=== PATIENT | female | born 1950 | race Caucasian/White ===

== ENCOUNTER → 2016-02-21 | Outpatient (REF) | payer MEDICARE, OTHER ==
[2016-02-21 19:01] LABS: AMYLASE 77 U/L (25-115)
== END ==
LOC: M LAB REF 16:41
PROVIDERS: ATTEND Nurse Practitioner Family
DX: R10.84 Generalized abdominal pain (principal)

== ENCOUNTER → 2016-02-27 | Outpatient (REF) | payer MEDICARE, OTHER | LOC: M LAB REF 14:55 | PROVIDERS: ATTEND Physician Assistant | DX: R30.0 Dysuria (principal) ==

== ENCOUNTER → 2016-09-26 | Outpatient (REF) | payer MEDICARE, OTHER | LOC: M LAB REF 16:10 | PROVIDERS: ATTEND Physician Assistant | DX: R30.0 Dysuria (principal) ==

== ENCOUNTER → 2017-03-13 | Outpatient (REF) | payer MEDICARE, OTHER | LOC: M LAB REF 12:21 | DX: N30.01 Acute cystitis with hematuria (principal) | CPT/HCPCS: 87186 ==

== ENCOUNTER → 2017-06-01 | Outpatient (REF) | payer MEDICARE, OTHER | LOC: M LAB REF 11:58 | DX: R30.0 Dysuria (principal) | CPT/HCPCS: 87086 ==

== ENCOUNTER 2017-09-14 12:27 | Emergency (ER) | payer MEDICARE, OTHER ==
[2017-09-14] MEDS: MECLIZINE 25 MG TABLET PO (15:00)
[2017-09-14] MEDS: NS 1,000 ML IV (15:00)
[2017-09-14 15:20] LABS: BASO % 0.5 % (0.0-1.0); EOS # 0.1 10^3/uL (0.0-0.50); EOS % 1.9 % (0.0-3.0); HEMATOCRIT 47.2 % (36.0-47.0); HEMOGLOBIN 15.8 g/dl (12.0-15.5); IMMATURE GRANULOCYTE % 0.4 % (0-3.0); LYMPH # 0.8 10^3/uL (1.5-4.5); LYMPH % 10.4 % (24.0-44.0); MEAN CORPUSCULAR HEMOGLOBIN 29.8 pg (27.0-33.0); MEAN CORPUSCULAR HGB CONC 33.5 g/dl (32.0-36.5); MEAN CORPUSCULAR VOLUME 89.1 fl (80.0-96.0); MONO # 0.5 10^3/uL (0.0-0.8); MONO % 6.3 % (0.0-5.0); NEUTROPHILS % 80.5 % (36.0-66.0); PLATELET COUNT, AUTOMATED 172 10^3/uL (150-450); RED CELL DISTRIBUTION WIDTH 12.1 % (11.5-14.5); WHITE BLOOD COUNT 7.4 10^3/uL (4.0-10.0)
[2017-09-14 15:37] LABS: AMMONIA < 10 uMOL/L (<32)
[2017-09-14 15:41] LABS: ALBUMIN 3.7 GM/DL (3.2-5.2); ALBUMIN/GLOBULIN RATIO 0.86 (1.00-1.93); ALKALINE PHOSPHATASE 72 U/L (45-117); ALT/SGPT 28 U/L (12-78); ANION GAP 7 MEQ/L (8-16); AST/SGOT 19 U/L (7-37); BILIRUBIN,DIRECT 0.1 MG/DL (0.0-0.2); BILIRUBIN,TOTAL 0.5 MG/DL (0.2-1.0); BLOOD UREA NITROGEN 19 MG/DL (7-18); CALCIUM LEVEL 9.4 MG/DL (8.8-10.2); CARBON DIOXIDE LEVEL 27 MEQ/L (21-32); CHLORIDE LEVEL 107 MEQ/L (98-107); CPK CREATINE PHOSPHOKINASE 155 U/L (26-192); CREATININE FOR GFR 0.74 MG/DL (0.55-1.30); ETHYL ALCOHOL (ETHANOL) < 0.003 % (0.000-0.010); GLOMERULAR FILTRATION RATE > 60.0 (>45); GLUCOSE, FASTING 106 MG/DL (70-100); POTASSIUM SERUM 4.4 MEQ/L (3.5-5.1); SALICYLATE LEVEL < 1.7 MG/DL (5.0-30.0); SODIUM LEVEL 141 MEQ/L (136-145); TROPONIN I < 0.02 NG/ML (< 0.10)
[2017-09-14 15:47] LABS: CK-MB VALUE MASS 1.8 NG/ML (<3.6); MB/CK RELATIVE INDEX 1.16 (< OR =4); THYROID STIMULATING HORMONE 0.251 uIU/ML (0.358-3.740)
[2017-09-14 15:50] LABS: BEDSIDE GLUCOSE 103 MG/DL (80-115)
[2017-09-14 16:01] LABS: ACETAMINOPHEN LEVEL < 2.0 UG/ML (10.0-30.0)
== END 2017-09-14 17:25 | disposition home or self-care (01) ==
LOC: M ED 12:27
DX: R42 Dizziness and giddiness (principal); R94.31 Abnormal electrocardiogram [ECG] [EKG]; E07.9 Disorder of thyroid, unspecified
CPT/HCPCS: 70450

== ENCOUNTER → 2017-10-18 | Outpatient (REF) | payer MEDICARE, OTHER ==
[2017-10-18 21:04] LABS: APPEARANCE, URINE HAZY (CLEAR); BACTERIA, URINE AUTO 1+ (NEGATIVE); BILIRUBIN, URINE AUTO NEGATIVE (NEGATIVE); BLOOD, URINE BLOOD 3+ (NEGATIVE); COLOR, URINE YELLOW (YELLOW); GLUCOSE, URINE (UA) AUTO NEGATIVE (NEGATIVE); KETONE, URINE AUTO NEGATIVE (NEGATIVE); LEUKOCYTE ESTERASE, URINE AUTO 2+ (NEGATIVE); NITRITE, URINE AUTO NEGATIVE (NEGATIVE); PROTEIN, URINE AUTO NEGATIVE (NEGATIVE); RBC, URINE AUTO TNTC /HPF (0-3); SPECIFIC GRAVITY URINE AUTO 1.011 (1.002-1.035); SQUAMOUS EPITHELIAL CELL UR AU 0 /HPF (0-6); UROBILINOGEN, URINE AUTO 0.2 mg/dL (0.0-2.0); WBC, URINE AUTO 99 /HPF (0-3)
== END ==
LOC: M LAB REF 16:39
DX: N39.0 Urinary tract infection, site not specified (principal)
CPT/HCPCS: 81001

== ENCOUNTER 2017-10-23 08:21 | Day surgery (SDC) | payer MEDICARE, OTHER ==
[~2017-10-23 08:21] MED LIST: PROPOFOL 200 MG/20 ML VIAL As Ordered
[2017-10-23] MEDS ORDERED: NS 1,000 ML IV (09:00)
== END 2017-10-23 10:33 | disposition home or self-care (01) ==
LOC: M OPP 08:21
DX: Z12.11 Encounter for screening for malignant neoplasm of colon (principal); D12.4 Benign neoplasm of descending colon; D12.3 Benign neoplasm of transverse colon; K57.30 Diverticulosis of large intestine without perforation or abscess without bleeding; K64.8 Other hemorrhoids; E03.9 Hypothyroidism, unspecified; E04.1 Nontoxic single thyroid nodule; Z92.3 Personal history of irradiation; M19.90 Unspecified osteoarthritis, unspecified site; Z78.0 Asymptomatic menopausal state; G47.30 Sleep apnea, unspecified; Z96.659 Presence of unspecified artificial knee joint; M54.89 Other dorsalgia; Z86.39 Personal history of other endocrine, nutritional and metabolic disease; Z91.048 Other nonmedicinal substance allergy status; Z79.899 Other long term (current) drug therapy
CPT/HCPCS: 45385

== ENCOUNTER → 2018-01-21 | Outpatient (REF) | payer MEDICARE, OTHER | LOC: M LAB REF 16:56 | DX: M54.5 Low back pain (principal) | CPT/HCPCS: 87086 ==

== ENCOUNTER 2018-02-06 08:47 | Observation (INO) | payer MEDICARE, OTHER ==
[~2018-02-06] VITALS: Ht 165.1 cm; Wt 108.8 kg
[~2018-02-06 08:47] MED LIST changes: +ALPR0.25; +ALPR0.25 PO; +BACT400T PO; +CALC500T49 PO; +CALC600T57 PO; +FLON1SPR; +LEVO150T7 PO; +LEVO2TA; +MAGN1CAP PO; +MECL-68 PO; +OMEG10002 PO; +PRED20TA; -PROPOFOL 200 MG/20 ML VIAL As Ordered; +VIST25CA PO; +VITA500T PO; +ZYRT10CA PO; +ZYRT10CA5 PO
[2018-02-06] MEDS ORDERED: MELO15TA28 PO (08:55)
[2018-02-06] MEDS ORDERED: SYNT175T2 PO (08:55)
[2018-02-06] MEDS ORDERED: KETOROLAC 30 MG/ML VIAL (J1885) IV ONE (09:15)
[2018-02-06] MEDS ORDERED: NS 1,000 ML IV ONE (09:15)
[2018-02-06] MEDS ORDERED: ONDANSETRON 4MG/2ML VIAL (J2405) IV ONE ×2 (09:15→12:30)
--- NOTE | 2018-02-06 09:30 | REP ---
Clinical: Acute left flank pain. Technique: Axial noncontrast images from the lung bases to the pubic symphysis with coronal and sagittal re-formations. Comparison: 06/24/2014. Findings: Lung bases are clear. Visualized heart and pericardium normal. Liver, spleen, pancreas, bilateral adrenal glands and kidneys are essentially normal for noncontrast evaluation. Specifically, no acute perinephric stranding, hydroureteronephrosis, intrarenal or obstructing ureteral calculi are identified. The patient is status post cholecystectomy. The enteric system is without obstruction or acute inflammatory process. Sigmoid diverticulosis noted without acute diverticulitis. Normal cecum and terminal ileum identified in the right lower quadrant. Appendix is not visualized. Pelvis demonstrates normal bladder and age-appropriate uterus/adnexa. No pelvic free fluid or ascites. No free air. No adenopathy. Abdominal aorta without aneurysm. Musculoskeletal structures without focal osseous abnormality. Impression: 1. No acute abdominopelvic pathology appreciated. 2. Essentially normal noncontrast appearance to the urinary tract system. 3. Sigmoid diverticula without acute diverticulitis. Electronically Signed by Richy Reyes MD 02/06/2018 09:21 A
[2018-02-06 09:32] LABS: BASO # 0.1 10^3/uL (0.0-0.2); EOS # 0.2 10^3/uL (0.0-0.50); EOS % 3.2 % (0.0-3.0); HEMATOCRIT 41.6 % (36.0-47.0); HEMOGLOBIN 13.7 g/dl (12.0-15.5); LYMPH # 1.2 10^3/uL (1.5-4.5); LYMPH % 18.7 % (24.0-44.0); MEAN CORPUSCULAR HGB CONC 32.9 g/dl (32.0-36.5); MEAN CORPUSCULAR VOLUME 91.2 fl (80.0-96.0); MONO # 0.6 10^3/uL (0.0-0.8); MONO % 9.4 % (0.0-5.0); NEUTROPHILS # 4.2 10^3/uL (1.8-7.7); NEUTROPHILS % 66.7 % (36.0-66.0); PLATELET COUNT, AUTOMATED 167 10^3/uL (150-450); RED BLOOD COUNT 4.56 10^6/uL (4.00-5.40); WHITE BLOOD COUNT 6.3 10^3/uL (4.0-10.0)
[2018-02-06 10:00] LABS: ALBUMIN 3.1 GM/DL (3.2-5.2); ALT/SGPT 27 U/L (12-78); BILIRUBIN,DIRECT < 0.1 MG/DL (0.0-0.2); BILIRUBIN,TOTAL 0.2 MG/DL (0.2-1.0); BLOOD UREA NITROGEN 32 MG/DL (7-18); CALCIUM LEVEL 8.9 MG/DL (8.8-10.2); CARBON DIOXIDE LEVEL 28 MEQ/L (21-32); CHLORIDE LEVEL 105 MEQ/L (98-107); CREATININE FOR GFR 0.82 MG/DL (0.55-1.30); GLOMERULAR FILTRATION RATE > 60.0 (>45); GLUCOSE, FASTING 105 MG/DL (70-100); LIPASE 696 U/L (73-393); POTASSIUM SERUM 4.5 MEQ/L (3.5-5.1); SODIUM LEVEL 138 MEQ/L (136-145); TOTAL PROTEIN 7.8 GM/DL (6.4-8.2)
[2018-02-06] MEDS ORDERED: MORPHINE 4 MG/ML 1ML VIAL/SYRINGE (J2270) IV ONE (10:30)
[2018-02-06] MEDS ORDERED: NORCOTAB PO (11:43)
[2018-02-06] MEDS ORDERED: ZOFR4TAB14 PO (11:43)
[2018-02-06] MEDS ORDERED: ONDANSETRON 4 MG ORAL DISINTEGRATING TAB (Q0162 PER 1MG) PO ONE (12:15)
[2018-02-06 12:37] LABS: CHOLESTEROL LEVEL 181 MG/DL (<200); CHOLESTEROL RISK RATIO 3.016 (<5); HDL CHOLESTEROL 60 MG/DL (>40); LDL CHOLESTEROL 99 MG/DL (<100); NON-HDL-C 121 MG/DL; TRIGLYCERIDES LEVEL 108 MG/DL (<150)
[2018-02-06] MEDS ORDERED: ACET500T15 PO (13:28)
[2018-02-06] MEDS ORDERED: FLON1SPR NARES (13:28)
[2018-02-06] MEDS ORDERED: LIDO5DIS41 TD (13:28)
[2018-02-06] MEDS ORDERED: FLUTICASONE PROP 0.05% NASAL SPRAY 16 GM (FLONASE) NARES PRN (13:45)
[2018-02-06] MEDS ORDERED: MORPHINE 4 MG/ML 1ML VIAL/SYRINGE (J2270) IV PRN (13:45)
[2018-02-06] MEDS ORDERED: LIDOCAINE 5% (LIDODERM) PATCH TD PRN (13:45)
[2018-02-06] MEDS: NS 1,000 ML IV SCH ×2 (14:00→15:07)
[2018-02-06] MEDS ORDERED: ONDANSETRON 4MG/2ML VIAL (J2405) IV PRN (14:15)
[2018-02-06 14:55] VITALS: BP 152/70
--- NOTE | 2018-02-06 15:03 | HPE ---
DATE OF ADMISSION: 02/06/2018 This is a 68-year-old female with past medical history of anxiety disorder and hypothyroidism as well as gastroesophageal reflux disease (GERD) who presents to the emergency room with left flank pain that has been going on for the last week. She went to urgent care. They thought it was musculoskeletal pain and sent her home; yet it got worse and she did say the pain did get worse especially the last 4 days where she was eating heavier and fattier foods and now in the last 24 hours it has been especially with epigastric pain and nausea. When she came to the emergency room (ER), she had a CAT scan of the abdomen and pelvis done and it did not show anything acute, but yet, her lipase was at 699. She was given two doses of Zofran and morphine, but she still had the epigastric pain and flank pain. It did not go away and she still felt nauseous. So surgeon, Dr. Mena, was consulted and recommendation is to admit her for acute pancreatitis, which I concur. She has never had similar symptoms in the past. She does not drink alcohol at all and her recent triglyceride done last week in urgent care was 73, and she has had already a cholecystectomy and a CT of the abdomen ad pelvis showed no evidence of common bile duct (CBD) stones. So she will be admitted for further management. Again, past medical history of GERD, anxiety disorder, history of hypothyroidism. She has NO KNOWN DRUG ALLERGIES. Family history is negative for any pancreatitis in the family. Social History: Patient does not smoke, rink alcohol or use illicit drugs. Medications he takes at home are as follows: - Tylenol 1 gram by mouth every 8 as needed - [place] one tablet orally every 6 hours as needed - alprazolam 0.25 mg orally three times a day as needed - calcium 500 mg, 1 gram by mouth daily - fluticasone propionate two sprays each nostril daily as needed - Synthroid 175 mcg orally in the morning - meloxicam 15 mg orally daily as needed - ondansetron 4 mg orally every 4 hours as needed Review of systems is negative for all 10 major systems except what has been mentioned in the history of present illness (HPI). Vitals: Blood pressure is 125/61. Heart rate 62, regular. Respiratory rate 16. Temperature 96.7. Oxygen saturation is 97% on room air. Head: Atraumatic, normocephalic. Neck: Supple. No jugular venous distention (JVD). Lungs are clear to auscultation. S1, S2 audible. No murmurs appreciated. Abdomen: Soft. Positive bowel sounds. There is no pedal edema. Skin intact. Neurologic Examination: Patient awake, alert and oriented times three. Labs: WBC 6.3, hemoglobin is 13.7, hematocrit 41.6, platelets are 167,000. Sodium 138, potassium is 4.5, chloride 105, CO2 28. Anion gap is 5. BUN is 32, creatinine 0.82. Glucose is 105. Total bilirubin 0.2. AST 23, ALT is 27. Alkaline phosphatase 82. Lipase is 696. Triglyceride is 108. IMPRESSION: 1. Acute pancreatitis. PLAN: Patient is to be admitted to the medical-surgical floor. I will keep her nothing by mouth for this evening. Put her on IV fluids normal saline (NS) at 124/hr. I will give her IV morphine and Zofran for symptomatic relief, and Dr. Mena will follow the patient in the morning. Will keep her nothing by mouth except meds at this time.
[2018-02-06] MEDS: MELOXICAM (MOBIC) 7.5 MG TAB PO PRN (15:55)
[2018-02-06] MEDS: ACETAMINOPHEN 500 MG TAB PO PRN (18:35)
[2018-02-06] MEDS: **NOTE PATIENT COMMENT** MISC XX SCH (21:00)
[2018-02-06 22:00] VITALS: BP 116/56
[2018-02-06] MEDS: ALPRAZolam 0.25 MG TAB PO PRN (23:15)
[2018-02-07] MEDS: ACETAMINOPHEN 500 MG TAB PO PRN (05:56)
[2018-02-07] MEDS: LEVOTHYROXINE 75MCG TABLET (0.075MG) PO SCH (05:56)
[2018-02-07] MEDS: LEVOTHYROXINE 100MCG TABLET (0.1MG) PO SCH (05:56)
[2018-02-07] MEDS: NS 1,000 ML IV SCH (05:57)
[2018-02-07 06:00] VITALS: BP 148/72
[2018-02-07] MEDS ORDERED: diphenhydrAMINE CREAM 30GM TOP PRN (06:45)
[2018-02-07 07:25] LABS: ALBUMIN 2.4 GM/DL (3.2-5.2); ALT/SGPT 158 U/L (12-78); BILIRUBIN,TOTAL 0.3 MG/DL (0.2-1.0); BLOOD UREA NITROGEN 19 MG/DL (7-18); CALCIUM LEVEL 8.2 MG/DL (8.8-10.2); CARBON DIOXIDE LEVEL 25 MEQ/L (21-32); CHLORIDE LEVEL 112 MEQ/L (98-107); CREATININE FOR GFR 0.67 MG/DL (0.55-1.30); GLOMERULAR FILTRATION RATE > 60.0 (>45); GLUCOSE, FASTING 100 MG/DL (70-100); LIPASE 115 U/L (73-393); SODIUM LEVEL 142 MEQ/L (136-145); TOTAL PROTEIN 6.1 GM/DL (6.4-8.2)
--- NOTE | 2018-02-07 08:30 | REP ---
Clinical: Pancreatitis with abdominal pain. Technique: Silva scale ultrasound using curved array transducer. Findings: The liver and visualized portions of the pancreas are normal in contour, size, and echogenicity without focal hepatic or pancreatic lesions identified. The patient is noted to be status post cholecystectomy with compensatory biliary ductal dilatation. The common bile duct measures 8.2 mm diameter. The right kidney is normal in reniform shape without hydronephrosis and measures 12.3 x 5.5 x 4.9 cm with suggestions of duplication to the proximal collecting system. No ascites. Visualized portions of the abdominal aorta normal. Impression: Evidence of prior cholecystectomy with compensatory biliary ductal dilatation. Visualized portions of the pancreas appear normal. Electronically Signed by Richy Reyes MD 02/07/2018 08:22 A
[2018-02-07] MEDS: OYSTER SHELL CALCIUM 500 MG TAB PO SCH (09:00)
[2018-02-07] MEDS: MELOXICAM (MOBIC) 7.5 MG TAB PO PRN (09:04)
--- NOTE | 2018-02-07 13:20 | IPN ---
DATE: 02/07/2018 SUBJECTIVE: The patient tells me that she is feeling better. Her back pain is improved. She has no fevers, chills, chest pain or shortness of breath. She denies any nausea, vomiting, diarrhea. OBJECTIVE: VITAL SIGNS: Temperature 98.5, pulse 63, respiratory rate 20, blood pressure 148/72, oxygen saturation 99% on room air. GENERAL : She is a very pleasant, female. She sits up to greet me as I enter the room. She does not appear to be in any acute distress. She is awake, alert, oriented times three. She is speaking in complete sentences. HEENT: Cranial nerves II through XII are grossly intact. She has moist mucous membranes. No elevation in central venous pressure. CARDIOVASCULAR: S1, S2 regular. RESPIRATORY: Clear. ABDOMINAL EXAM: Fairly benign. No tenderness to palpation. EXTREMITIES: No clubbing or cyanosis. There is trace edema bilaterally. LABORATORY STUDIES: WBC 6.3, hemoglobin 13.7, platelet count is 167. Chemistry panel: Sodium 142, potassium 5.0, chloride 112, bicarbonate 25, BUN 19, creatinine 0.6. She did have some elevation in her liver function tests with AST 143, up from 23. IMAGING: The patient did have a liver ultrasound this morning, which showed evidence of prior cholecystectomy with compensatory biliary duct dilation, but the visualized pancreas appeared normal. CT scan of the abdomen and pelvis at the time of admission revealed no acute abdominal or pelvic pathology appreciated. ASSESSMENT AND PLAN: This is a 68-year-old female with resolving pancreatitis. 1. Pancreatitis, etiology remains unclear. She is not an alcoholic. She does not use tobacco products. She denies any recent urinary symptoms or start or change of any specific medication, which are suspect. It appears that this has been going on for the last several weeks and resolved with supportive measures thus far. Continue to monitor her closely. We will start her on clear liquids today and advance her as tolerated tomorrow. Discontinue IV fluids. 2. Elevated liver function tests. She did reeve 2 grams of Tylenol overnight. Liver ultrasound is unrevealing. Her pain has subsided. We will just continue to trend at this time. My suspicion that it will trend up or trend downward may be a medication adverse reaction; however, the patient clinically is improving so I am less concerned at this point. 3. Hypothyroidism. She is continue on Synthroid, which has been recently titrated by her outpatient provider. 4. Anxiety. Continue with her Xanax. 5. Chronic pain. Continue with Lidoderm and Mobic. DISPOSITION: Possibly home tomorrow pending continued improved mobility to tolerate diet
[2018-02-07 14:00] VITALS: BP 141/69
[2018-02-07] MEDS: ALPRAZolam 0.25 MG TAB PO PRN ×2 (16:02→22:40)
[2018-02-07 17:34] LABS: ALT/SGPT 177 U/L (12-78); BILIRUBIN,TOTAL 0.2 MG/DL (0.2-1.0); BLOOD UREA NITROGEN 15 MG/DL (7-18); CALCIUM LEVEL 8.6 MG/DL (8.8-10.2); CARBON DIOXIDE LEVEL 27 MEQ/L (21-32); CHLORIDE LEVEL 109 MEQ/L (98-107); CREATININE FOR GFR 0.69 MG/DL (0.55-1.30); GLOMERULAR FILTRATION RATE > 60.0 (>45); GLUCOSE, FASTING 87 MG/DL (70-100); POTASSIUM SERUM 4.5 MEQ/L (3.5-5.1); SODIUM LEVEL 142 MEQ/L (136-145); TOTAL PROTEIN 7.2 GM/DL (6.4-8.2)
--- NOTE | 2018-02-07 20:27 | CR ---
DATE OF CONSULTATION: 02/07/2018 REASON FOR CONSULTATION: Pancreatitis. HISTORY OF PRESENT ILLNESS: The patient is 68-year-old female who has had some left flank pain for the last week, has had a previous cholecystectomy in the past and has noticed that she has had some left-sided pain and discomfort, came to the emergency room for evaluation and was found to have an elevated lipase. CAT scan did not reveal any significant abnormality. The ER asked me for my recommendations concerning further treatment and I suggested to the ER physician that there is no surgical intervention for this and would recommend routine workup for elevated lipase. I am asked to see the patient today for additional recommendations. An ultrasound was performed today and revealed no common bile duct stones. No common bile duct dilatation. However, her liver function tests have elevated. PAST MEDICAL HISTORY: Significant for gastroesophageal reflux disease, anxiety disorder and hypothyroidism. MEDICATIONS: Are Tylenol and [place], alprazolam, calcium, fluticasone, Synthroid, meloxicam, Zofran. PHYSICAL EXAM: Reveals a 68-year-old female who looks stated age. HEENT is unremarkable. Neck is supple without adenopathy. Lungs are clear to auscultation. Heart is regular. Abdomen is soft, nondistended, obese, nontender. She has a small rash on her left side of her left flank. IMPRESSION AND PLAN: The patient has evidence of elevated pancreatic enzymes with some changes in liver function tests, although they and not classic for obstruction. I do feel that an MRCP is warranted. If the patient has an abnormality seen on the MRCP a metal furniture assembly supervisor consultation would be recommended for an ERCP. If the MRCP shows no significant abnormality and the enzymes resolve then following up with her metal furniture assembly supervisor Dr. Romo as an outpatient is reasonable. However, if she has a normal MRCP and increasing liver function tests tomorrow I would again recommend a metal furniture assembly supervisor consult. Otherwise no surgical intervention is needed at this time.
[2018-02-07] MEDS: **NOTE PATIENT COMMENT** MISC XX SCH (21:00)
[2018-02-07 22:00] VITALS: BP 137/70
[2018-02-08] MEDS: LEVOTHYROXINE 100MCG TABLET (0.1MG) PO SCH (05:41)
[2018-02-08] MEDS: LEVOTHYROXINE 75MCG TABLET (0.075MG) PO SCH (05:41)
[2018-02-08 06:00] VITALS: BP 123/65
[2018-02-08 07:24] LABS: HEMATOCRIT 35.7 % (36.0-47.0); MEAN CORPUSCULAR HEMOGLOBIN 29.9 pg (27.0-33.0); MEAN CORPUSCULAR HGB CONC 32.5 g/dl (32.0-36.5); PLATELET COUNT, AUTOMATED 133 10^3/uL (150-450); RED BLOOD COUNT 3.88 10^6/uL (4.00-5.40); WHITE BLOOD COUNT 4.4 10^3/uL (4.0-10.0)
[2018-02-08 07:41] LABS: ALBUMIN 2.7 GM/DL (3.2-5.2); ALT/SGPT 135 U/L (12-78); BILIRUBIN,TOTAL 0.3 MG/DL (0.2-1.0); BLOOD UREA NITROGEN 11 MG/DL (7-18); CALCIUM LEVEL 8.7 MG/DL (8.8-10.2); CARBON DIOXIDE LEVEL 27 MEQ/L (21-32); CHLORIDE LEVEL 108 MEQ/L (98-107); CREATININE FOR GFR 0.77 MG/DL (0.55-1.30); GLOMERULAR FILTRATION RATE > 60.0 (>45); GLUCOSE, FASTING 137 MG/DL (70-100); POTASSIUM SERUM 3.9 MEQ/L (3.5-5.1); SODIUM LEVEL 141 MEQ/L (136-145); TOTAL PROTEIN 6.6 GM/DL (6.4-8.2)
[2018-02-08 07:42] LABS: HEMOGLOBIN 11.6 g/dl (12.0-15.5)
--- NOTE | 2018-02-08 09:29 | REP ---
MRCP: MRCP exam is accomplished utilizing multiple heavily T2-weighted sequences in the axial and coronal planes with MIP reconstruction images. Patient has had a prior cholecystectomy. There is mild intrahepatic biliary dilatation. There is mild dilatation of the common bile duct up to approximately 13 mm. No filling defect is seen. No evidence of choledocholithiasis. The pancreatic duct is normal in caliber. No free fluid is seen in the visualized abdomen. The visualized portions of the liver, spleen, adrenals, pancreas, and kidneys are unremarkable. IMPRESSION: Patient status post cholecystectomy with very mild dilatation of the common bile duct. No evidence of choledocholithiasis. Maximum common bile duct diameter is 13 mm. Electronically Signed by Win Silva MD 02/14/2018 11:00 P
[2018-02-08] MEDS: OYSTER SHELL CALCIUM 500 MG TAB PO SCH (11:04)
[2018-02-08] MEDS: MELOXICAM (MOBIC) 7.5 MG TAB PO PRN (11:04)
--- NOTE | 2018-02-11 12:22 | DSES ---
DATE OF ADMISSION: 02/06/2018 DATE OF DISCHARGE: 02/08/2018 DIAGNOSIS: Acute pancreatitis. SECONDARY DIAGNOSES: 1. Abnormal liver function tests. 2. Hypothyroidism. 3. Anxiety. 4. Chronic pain. HOSPITAL COURSE: The patient is a 68 -year-old female who had had progressively worsening back pain related to food for 2-3 weeks. She had been seen in urgent care several times until she presented to the emergency room and was found to have an elevated lipase. She was kept nothing by mouth, put on intravenous (IV) fluids, and provided with pain medication. Her symptoms did rapidly resolve. She did have a small elevation of her liver function tests with an AST of 143, and ALT of 158, which peaked. She was seen by Dr. Mena of general surgery in consultation, who recommended magnetic resonance cholangiopancreatography (MRCP). MRCP was completed, which revealed mild dilatation of the common bile duct at 13 mm but no choledocholithiasis. She also had a CT scan of the abdomen and pelvis, which revealed no acute abdominopelvic pathology, normal non-contrast appearance to the urinary tract system, and she did have a liver ultrasound that revealed evidence of prior cholecystectomy with compensatory biliary ductal dilation and visualized portions of the pancreas, and that study appeared normal. Her liver function tests trended downward. Her lipase resolved. Her pain resolved. She tolerated a regular diet. At this time she is doing well and medically stable for discharge home. SUBJECTIVE: This morning the patient tells me she is feeling well and would like to go home. OBJECTIVE: VITAL SIGNS: Temperature 98.2, pulse 59, respiratory rate 20, blood pressure (BP) 123/65, oxygen saturation 96% on room air. GENERAL: She is morbidly obese female sitting up in a chair using her computer. She does not appear to be in any acute distress. She is quite pleasant. HEENT: Cranial nerves II-XII are grossly intact. She has moist mucous membranes. No elevation in central venous pressure (CVP). CARDIOVASCULAR: S1, S2, regular. RESPIRATORY: Clear. ABDOMEN: Completely benign. Bowel sounds are present. The abdomen is soft. It is obese. EXTREMITIES: No clubbing, cyanosis, or edema. LABORATORY STUDIES; WBC 4.4, hemoglobin 11.6, platelet count 33. Chemistry panel: Sodium 141, potassium 3.9, chloride 108, bicarbonate 27, BUN 11, creatinine 0.7. AST 80, ALT 135. Urinalysis was unremarkable. Urine culture was negative. IMAGING: As outlined above. ASSESSMENT AND PLAN: This is a 68-year-old female with acute pancreatitis. 1. Acute pancreatitis, resolved. The etiology remains unclear. She is not an alcoholic. She does not use tobacco products. She has not had any recent upper respiratory infection (URI) symptoms or viral infections. Her lipids were not significantly elevated. She does not appear to have any retained stones. There are no new medications or medication changes that are suspicious. At this time she is tolerating a regular diet. She has had an MRCP. She is medically stable for discharge home with followup with Dr. Romo, her clinic director. 2. Elevated liver function tests. She received 2 grams of Tylenol the first night of her admission. This was discontinued, and it does appear to be resolving. There was no evidence of choledocholithiasis. General surgery's help is greatly appreciated. It does appear to be acute, related as least temporarily to her pancreatitis. Should she have any recurrence, would consider rechecking in the future. 3. Hypothyroidism. She is on Synthroid, which was recently titrated up by her outpatient provider. 4. Anxiety. She is continued on Xanax. 5. Chronic pain. She is continued on Lidoderm and Mobic. DISPOSITION: The patient is being discharged home. Her clinical status is resolved. She is tolerating a regular diet. She should followup with her primary care physician (PCP) within 7 days, followup with gastroenterology within a month. She is to have a 2-gram sodium, low-fat diet. Her activity is as prior to admission. DISCHARGE MEDICATIONS: - Tylenol 1 gram as needed for pain. I have advised her to limit this in the coming days. - [place] 5/325 one tablet every 6 hours as needed for pain, not to exceed four per day. Once again, she has been advised to limit her Tylenol intake - alprazolam 0.25 mg three times a day as needed for anxiety - calcium 1 gram daily - Flonase two sprays to nares daily as needed for congestion - Synthroid 175 mcg every morning - meloxicam 15 mg daily - Zofran 4 mg every 4 hours as needed for nausea Greater than 30 minutes spent organizing disposition.
== END 2018-02-08 15:00 | disposition home or self-care (01) ==
LOC: M ED 08:47 → M ED INP 13:44 → M MS5PR 14:50
PROVIDERS: ADMIT Internal Medicine; ATTEND Internal Medicine
DX: K85.90 Acute pancreatitis without necrosis or infection, unspecified (principal); R94.5 Abnormal results of liver function studies; E03.9 Hypothyroidism, unspecified; F41.9 Anxiety disorder, unspecified; K21.9 Gastro-esophageal reflux disease without esophagitis; G89.4 Chronic pain syndrome; Z79.899 Other long term (current) drug therapy
CPT/HCPCS: 36415; 74176; 74181; 76705; 80048; 80053; 80061; 80076; 81001; 83690; 85025; 85027; 87086; 96374; 96375; 96376; 99284; G0378; J1885; J2270; J2405

== ENCOUNTER → 2018-02-13 | Outpatient (REF) | payer MEDICARE, OTHER ==
[~2018-02-13] MED LIST changes: +ACET500T15 PO; +FLON1SPR NARES; +LIDO5DIS41 TD; +MELO15TA28 PO; +NORCOTAB PO; +SYNT175T2 PO; +ZOFR4TAB14 PO
== END ==
LOC: M LAB REF 18:48
PROVIDERS: ATTEND Internal Medicine
DX: R10.9 Unspecified abdominal pain (principal)

== ENCOUNTER → 2018-02-15 | Outpatient (REF) | payer MEDICARE, OTHER | LOC: M LAB REF 11:59 | PROVIDERS: ATTEND Physician Assistant | DX: N39.0 Urinary tract infection, site not specified (principal) ==

== ENCOUNTER 2018-03-08 19:33 | Emergency (ER) | payer MEDICARE, OTHER ==
[~2018-03-08] VITALS: Ht 165.1 cm; Wt 98.6 kg
[2018-03-08 19:34] VITALS: BP 162/77
[2018-03-08] MEDS ORDERED: CEPHALEXIN 500 MG CAP PO ONE (20:15)
[2018-03-08] MEDS ORDERED: KEFL500C17 PO (20:15)
== END 2018-03-08 20:28 | disposition home or self-care (01) ==
LOC: M ED 19:33
DX: N30.01 Acute cystitis with hematuria (principal); Z87.440 Personal history of urinary (tract) infections; E03.9 Hypothyroidism, unspecified; F41.9 Anxiety disorder, unspecified; M51.9 Unspecified thoracic, thoracolumbar and lumbosacral intervertebral disc disorder; Z91.048 Other nonmedicinal substance allergy status; Z79.890 Hormone replacement therapy

== ENCOUNTER → 2018-03-14 | Outpatient (CLI) | payer MEDICARE, OTHER ==
[~2018-03-14] MED LIST changes: +KEFL500C17 PO
[2018-03-14 12:00] LABS: ALBUMIN 3.4 GM/DL (3.2-5.2); ALT/SGPT 26 U/L (12-78); BILIRUBIN,DIRECT 0.2 MG/DL (0.0-0.2); BILIRUBIN,TOTAL 0.4 MG/DL (0.2-1.0); IRON (FE) 76 UG/DL (50-170); LIPASE 153 U/L (73-393); PERCENT SATURATION 21.1 % (13.2-45.0); TOTAL IRON BINDING CAPACITY 361 UG/DL (250-450); TOTAL PROTEIN 7.4 GM/DL (6.4-8.2)
[2018-03-15 12:20] LABS: HEPATITIS B SURFACE ANTIGEN NEGATIVE (NEGATIVE)
[2018-03-15 12:47] LABS: HEPATITIS B CORE ANTIBODY IGM NEGATIVE (NEGATIVE); HEPATITIS C VIRUS ABY INDEX 0.1 INDEX (<0.8)
[2018-03-15 12:50] LABS: HEPATITIS A ANTIBODY IGM NEGATIVE (NEGATIVE)
[2018-03-20 00:07] LABS: ANCA-ATYPICAL <1:20 titer (Neg:<1:20); ANTI-MITOCHONDRIAL ANTIBODY <20.0 Units (0.0-20.0); ANTINUCLEAR ANTIBODIES DIRECT Negative (Negative); CYTOPLASMIC NEUTROP AB ANCA-C <1:20 titer (Neg:<1:20); LIVER-KIDNEY MICROSOMAL ABY <20.1 Units (0.0-20.0); PERINUCLEAR AB ANCA-P <1:20 titer (Neg:<1:20)
== END ==
LOC: M LAB 10:34
PROVIDERS: ATTEND Internal Medicine Gastroenterology
DX: R74.8 Abnormal levels of other serum enzymes (principal)

== ENCOUNTER 2018-05-16 12:23 | Day surgery (SDC) | payer MEDICARE, OTHER ==
[~2018-05-16] VITALS: Ht 163.8 cm; Wt 95.0 kg
[~2018-05-16 12:23] MED LIST changes: +HYDR-3715 PO; +META0.52 PO; -NORCOTAB PO; +NS 1,000 ML IV ONE; +RANI150T PO
[2018-05-16] MEDS ORDERED: LIDOCAINE 2% INJ 100 MG/5 ML SDV (FOR ANES.) As Ordered ONE (14:03)
[2018-05-16] MEDS ORDERED: PROPOFOL 200 MG/20 ML VIAL As Ordered ONE (14:04)
--- NOTE | 2018-05-16 15:43 | ROOR ---
Patient Name: Yoli Morris Procedure Date: 05/16/2018 3:17 PM Date of : 1950 Age: 68 Room: [facility] Gender: Female Note Status: Finalized Procedure: Upper GI endoscopy Indications: Epigastric abdominal pain, Heartburn Providers: Curry ROMO MD Referring MD: Luzma WITT MD Requesting Provider: Medicines: Monitored Anesthesia Care Complications: No immediate complications. Procedure: Pre-Anesthesia Assessment: - The heart rate, respiratory rate, oxygen saturations, blood pressure, adequacy of pulmonary ventilation, and response to care were monitored throughout the procedure. The Endoscope was introduced through the mouth, and advanced to the second part of duodenum. The upper GI endoscopy was accomplished without difficulty. The patient tolerated the procedure well. Findings: Three localized erosions without bleeding were found in the second portion of the duodenum and in the third portion of the duodenum. Biopsies were taken with a cold forceps for histology. The exam of the duodenum was otherwise normal. Scattered minimal inflammation was found in the gastric antrum. Biopsies were taken with a cold forceps for Helicobacter pylori testing. The exam of the stomach was otherwise normal. The examined esophagus was normal. Impression: - A few superficial duodenal erosions without bleeding. Biopsied. - Minimal gastritis. Biopsied. - The exam is otherwise normal. Recommendation: - Use Zantac (ranitidine) 150 mg PO BID. - If applicable, please reduce or avoid NSAIDS (motrin, ibuprofen, naproxen etc)--Use tylenol instead. - Telephone endoscopist for pathology results in 2 weeks. - Observe patient's clinical course. Curry Romo MD Curry ROMO MD 05/16/2018 3:43:36 PM Electronically signed by Curry ROMO MD Number of Addenda: 0 Note Initiated On: 05/16/2018 3:17 PM Estimated Blood Loss: Estimated blood loss: none.
[2018-05-16 15:57] VITALS: BP 127/58
== END 2018-05-16 16:10 | disposition home or self-care (01) ==
LOC: M OPP 12:23
PROVIDERS: ATTEND Internal Medicine Gastroenterology
DX: K29.60 Other gastritis without bleeding (principal); K29.80 Duodenitis without bleeding; R10.13 Epigastric pain; R12 Heartburn

== ENCOUNTER 2018-08-10 04:14 | Emergency (ER) | payer MEDICARE, OTHER ==
[~2018-08-10] VITALS: Ht 165.1 cm; Wt 96.4 kg
[~2018-08-10 04:14] MED LIST changes: -NS 1,000 ML IV ONE
[2018-08-10] MEDS ORDERED: CETI10TA4 PO (04:25)
[2018-08-10] MEDS ORDERED: MELO15TA28 PO (04:25)
[2018-08-10] MEDS ORDERED: FLON1SPR NARES (04:25)
[2018-08-10 05:24] LABS: BASO # 0.1 10^3/uL (0.0-0.2); BASO % 1.1 % (0.0-1.0); EOS # 0.3 10^3/uL (0.0-0.50); EOS % 4.1 % (0.0-3.0); HEMATOCRIT 42.7 % (36.0-47.0); LYMPH # 1.4 10^3/uL (1.5-4.5); LYMPH % 22.1 % (24.0-44.0); MEAN CORPUSCULAR HEMOGLOBIN 29.9 pg (27.0-33.0); MEAN CORPUSCULAR HGB CONC 32.8 g/dl (32.0-36.5); MONO # 0.6 10^3/uL (0.0-0.8); MONO % 9.4 % (0.0-5.0); NEUTROPHILS % 62.8 % (36.0-66.0); PLATELET COUNT, AUTOMATED 156 10^3/uL (150-450); RED BLOOD COUNT 4.69 10^6/uL (4.00-5.40); WHITE BLOOD COUNT 6.4 10^3/uL (4.0-10.0)
[2018-08-10] MEDS ORDERED: KETOROLAC 30 MG/ML VIAL (J1885) As Ordered ONE (05:40)
[2018-08-10] MEDS ORDERED: KETOROLAC 30 MG/ML VIAL (J1885) IV ONE (05:45)
[2018-08-10 05:47] LABS: ALBUMIN 3.2 GM/DL (3.2-5.2); ALT/SGPT 23 U/L (12-78); BILIRUBIN,DIRECT 0.1 MG/DL (0.0-0.2); BILIRUBIN,TOTAL 0.4 MG/DL (0.2-1.0); BLOOD UREA NITROGEN 29 MG/DL (7-18); CARBON DIOXIDE LEVEL 28 MEQ/L (21-32); CHLORIDE LEVEL 106 MEQ/L (98-107); CREATININE FOR GFR 0.88 MG/DL (0.55-1.30); GLOMERULAR FILTRATION RATE > 60.0 (>45); GLUCOSE, FASTING 92 MG/DL (70-100); LIPASE 334 U/L (73-393); POTASSIUM SERUM 4.4 MEQ/L (3.5-5.1); SODIUM LEVEL 139 MEQ/L (136-145); TOTAL PROTEIN 7.4 GM/DL (6.4-8.2)
[2018-08-10] MEDS ORDERED: ISOVUE-370 76% 100ML VIAL (Q9967) As Ordered ONE (06:09)
--- NOTE | 2018-08-10 07:50 | REPVR ---
EXAM: CT Angiography Chest With Contrast EXAM DATE/TIME: 08/10/2018 6:04 AM CLINICAL HISTORY: 68 years old, female; Left-sided chest pain; Additional info: L pain TECHNIQUE: Imaging protocol: Axial computed tomographic angiography images of the chest with intravenous contrast using CT angiography protocol. Coronal and sagittal reformatted images were created and reviewed. 3D rendering: MIP reconstructed images were created and reviewed. Radiation optimization: All CT scans at this facility use at least one of these dose optimization techniques: automated exposure control; mA and/or kV adjustment per patient size (includes targeted exams where dose is matched to clinical indication); or iterative reconstruction. Contrast material: ISO; Contrast volume: 100 ml; Contrast route: AC; COMPARISON: No relevant prior studies available. FINDINGS: Pulmonary arteries: Normal. No pulmonary emboli. Aorta: Unremarkable. No aortic aneurysm. No aortic dissection. Lungs: Bilateral dependent atelectasis. Atelectasis in the right middle lobe. Pleural space: Unremarkable. No pneumothorax. No pleural effusion. Heart: Unremarkable. No cardiomegaly. No pericardial effusion. Gallbladder and bile ducts: Status post cholecystectomy. Lymph nodes: Unremarkable. No enlarged lymph nodes. Bones/joints: Multilevel degenerative disease of the thoracic spine. Soft tissues: Unremarkable. IMPRESSION: No acute pulmonary embolic disease. Electronically signed by: Harvey Drake On 08/10/2018 07:50:11 AM
--- NOTE | 2018-08-10 07:58 | REPVR ---
EXAM: CT Abdomen and Pelvis With Contrast EXAM DATE/TIME: 08/10/2018 6:04 AM CLINICAL HISTORY: 68 years old, female; Abdominal pain; Flank; Left; Additional info: L pain TECHNIQUE: Imaging protocol: Axial computed tomography images of the abdomen and pelvis with intravenous contrast. Coronal and sagittal reformatted images were created and reviewed. Radiation optimization: All CT scans at this facility use at least one of these dose optimization techniques: automated exposure control; mA and/or kV adjustment per patient size (includes targeted exams where dose is matched to clinical indication); or iterative reconstruction. Contrast material: ISO; Contrast volume: 100 ml; Contrast route: AC; COMPARISON: CT ABD PELVIS W/O CONTRAST 02/06/2018 9:00 AM FINDINGS: Liver: Normal. No mass. Gallbladder and bile ducts: Status post cholecystectomy. Mild extrahepatic biliary ductal dilatation without obstructing calculus. Pancreas: Normal. No ductal dilation. Spleen: Normal. No splenomegaly. Adrenals: Normal. No mass. Kidneys and ureters: Normal. No hydronephrosis. Stomach and bowel: Diverticulosis of the colon. No evidence of acute diverticulitis. Appendix: No evidence of appendicitis. Intraperitoneal space: Normal. No free air. No significant fluid collection. Vasculature: Atherosclerotic disease of the abdominal aorta. Lymph nodes: Normal. No enlarged lymph nodes. Bladder: Unremarkable as visualized. Reproductive: Unremarkable as visualized. Bones/joints: Mild anterolisthesis of L5 on S1 secondary to bilateral L5 pars interarticularis defects. Multilevel degenerative disease and facet hypertrophy. Osteitis pubis. Soft tissues: Unremarkable. IMPRESSION: Diverticulosis of the colon. No evidence of acute diverticulitis. No hydronephrosis or nephrolithiasis bilaterally. Electronically signed by: Harvey Drake On 08/10/2018 07:58:17 AM
[2018-08-10] MEDS ORDERED: LIDO5DIS41 TOP (08:10)
[2018-08-10] MEDS ORDERED: TRAM50TA2 PO (08:12)
[2018-08-10 08:29] VITALS: BP 123/70
[2018-08-10] MEDS ORDERED: LIDOCAINE 5% (LIDODERM) PATCH TD ONE (08:45)
== END 2018-08-10 08:43 | disposition home or self-care (01) ==
LOC: M ED 04:14
DX: M79.18 Myalgia, other site (principal); R10.9 Unspecified abdominal pain; Z87.19 Personal history of other diseases of the digestive system; E03.9 Hypothyroidism, unspecified; M54.9 Dorsalgia, unspecified; Z91.048 Other nonmedicinal substance allergy status; Z79.899 Other long term (current) drug therapy
CPT/HCPCS: 71275; 74177; 80048; 80076; 81001; 83690; 85025; 96374; 99284; J1885; Q9967

== ENCOUNTER → 2018-10-21 | Outpatient (REF) | payer MEDICARE, OTHER ==
[~2018-10-21] MED LIST changes: +CETI10TA4 PO; +LIDO5DIS41 TOP; +TRAM50TA2 PO
[2018-10-21 17:51] LABS: PERCENT SATURATION 27.5 % (13.2-45.0)
== END ==
LOC: M LAB REF 17:22
PROVIDERS: ATTEND Internal Medicine
DX: D64.9 Anemia, unspecified (principal)

== ENCOUNTER → 2019-09-19 | Outpatient (REF) | payer MEDICARE, OTHER ==
[~2019-09-19] MED LIST changes: -MECL-68 PO; +MECL1TAB31 PO; +VITA-243 PO; -VITA500T PO
[2019-11-03 10:05] LABS: PERCENT SATURATION 27.3 % (13.2-45.0)
== END ==
LOC: M LAB REF 15:12
PROVIDERS: ATTEND Internal Medicine
DX: Z01.818 Encounter for other preprocedural examination (principal); M25.569 Pain in unspecified knee; D63.8 Anemia in other chronic diseases classified elsewhere

== ENCOUNTER → 2020-05-26 | Outpatient (CLI) | payer MEDICARE, OTHER ==
--- NOTE | 2020-05-26 16:02 | REP ---
INDICATION: LOW BACK PAIN, RIGHT SCIATICA. COMPARISON: None. FINDINGS: Five views of the lumbosacral spine show no acute fracture or dislocation. The intervertebral disc spaces are narrowed throughout. [place] disc space narrowing is seen from L3-4 to L5-S1 inclusive and particularly posteriorly at all other lumbar levels. [place] T12-L1 disc space narrowing is also noted. There is anterior lipping at every level. There is no spondylolysis. There is a grade 1 L4 upon S1 spondylolisthesis. Hypertrophic degenerative changes are seen involving the facet joints bilaterally at every level particularly L4-5 and L5-S1. Marginal osteophytosis is seen at every level bilaterally of varying degrees. The pedicles are intact bilaterally and there is no destructive osseous lesion. IMPRESSION: Chronic changes as described above. <Electronically signed by Lazaro Mosley > 05/26/20 [id number]
== END ==
LOC: M WUC 15:01
PROVIDERS: ATTEND Internal Medicine
DX: M51.35 Other intervertebral disc degeneration, thoracolumbar region (principal); M51.36 Other intervertebral disc degeneration, lumbar region; M51.37 Other intervertebral disc degeneration, lumbosacral region; M43.16 Spondylolisthesis, lumbar region; M25.78 Osteophyte, vertebrae

== ENCOUNTER → 2020-07-20 | Outpatient (CLI) | payer MEDICARE, OTHER ==
--- NOTE | 2020-07-20 16:19 | REPVR ---
PROCEDURE INFORMATION: Exam: MR Lumbar Spine Without Contrast Exam date and time: 07/20/2020 1:56 PM Age: 70 years old Clinical indication: Low back pain; Patient HX: Lbp; Additional info: Lumbar spondylolisthesis TECHNIQUE: Imaging protocol: Multiplanar magnetic resonance images of the lumbar spine without intravenous contrast. COMPARISON: CR SPINE LS COMPLETE 05/26/2020 3:21 PM FINDINGS: Vertebral body heights are maintained. Multilevel [place] type 1 edematous degenerative endplate change. No MR evidence of acute lumbar spine fracture. No cord compression. No abnormal cord signal. Conus medullaris terminates at the L2 level. Paravertebral soft tissues are unremarkable. L1-L2: Broad-based disc bulge and facet hypertrophy cause mild canal narrowing and mild bilateral foraminal narrowing. L2-L3: Broad-based disc bulge and facet hypertrophy cause mild canal narrowing and mild bilateral foraminal narrowing. L3-L4: Broad-based disc bulge and facet hypertrophy cause moderate canal narrowing. Effacement of the bilateral lateral recesses. Moderate right and mild left foraminal narrowing. L4-L5: Broad-based disc bulge and facet hypertrophy cause moderate canal narrowing. Effacement of the left lateral recess. Moderate bilateral foraminal narrowing. L5-S1: Broad-based disc bulge and facet hypertrophy cause mild canal narrowing and moderate bilateral foraminal narrowing. IMPRESSION: Multilevel spondylotic changes of the lumbar spine, as detailed above. Electronically signed by: Josh Gotti On 07/20/2020 16:18:54 PM
== END ==
LOC: M PLARAD 12:33
PROVIDERS: ATTEND Physician Assistant
DX: M43.16 Spondylolisthesis, lumbar region (principal)

== ENCOUNTER → 2020-09-21 | Outpatient (REF) | payer MEDICARE, OTHER ==
[2020-09-21 18:23] LABS: PERCENT SATURATION 20.8 % (13.2-45.0)
== END ==
LOC: M LAB REF 17:00
PROVIDERS: ATTEND Internal Medicine
DX: Z01.818 Encounter for other preprocedural examination (principal)

== ENCOUNTER 2021-04-12 08:58 | Day surgery (SDC) | payer MEDICARE, OTHER ==
[~2021-04-12] VITALS: Ht 162.6 cm; Wt 94.8 kg
[~2021-04-12 08:58] MED LIST changes: +ESTR10TA PO; +LIDOCAINE 2% 100MG/5ML SDV (FOR ANES.) As Ordered ONE; +NS 1,000 ML IV ONE; +OMEP-173 PO; +SYNT150T PO; +propofoL 200 MG/20 ML VIAL As Ordered ONE
[2021-04-12 11:01] VITALS: BP 138/80
== END 2021-04-12 11:02 | disposition home or self-care (01) ==
LOC: M OPP 08:58
PROVIDERS: ATTEND Internal Medicine Gastroenterology
DX: Z12.11 Encounter for screening for malignant neoplasm of colon (principal); Z86.010 Personal history of colon polyps; D12.2 Benign neoplasm of ascending colon; D12.3 Benign neoplasm of transverse colon; K57.30 Diverticulosis of large intestine without perforation or abscess without bleeding; Z79.899 Other long term (current) drug therapy; Z83.79 Family history of other diseases of the digestive system

== ENCOUNTER → 2021-11-27 | Outpatient (REF) | payer MEDICARE, OTHER ==
[~2021-11-27] MED LIST changes: -LIDOCAINE 2% 100MG/5ML SDV (FOR ANES.) As Ordered ONE; -NS 1,000 ML IV ONE; -propofoL 200 MG/20 ML VIAL As Ordered ONE
[2021-11-27 21:04] LABS: APPEARANCE, URINE MANUAL TURBID (CLEAR); BILIRUBIN, URINE MANUAL NEGATIVE (NEGATIVE); BLOOD URINE MANUAL POSITIVE (NEGATIVE); COLOR, URINE MANUAL BROWN (YELLOW); GLUCOSE, URINE (UA) MANUAL NEGATIVE (NEGATIVE); KETONE, URINE MANUAL NEGATIVE (NEGATIVE); LEUKOCYTE ESTERASE, URINE MAN POSITIVE (NEGATIVE); NITRITE, URINE MANUAL NEGATIVE (NEGATIVE); PROTEIN, URINE MANUAL 3+ mg/dL (NEGATIVE); SPECIFIC GRAVITY,URINE MANUAL 1.025 (1.002-1.035); UROBILINOGEN, URINE MANUAL NORMAL (NORMAL)
[2021-11-27 21:05] LABS: RBC, URINE TNTC /hpf (0-3); SQUAMOUS EPITHELIAL CELL URINE SMALL AMOUNT /hpf (SMALL AMT); WBC, URINE TNTC /hpf (0-3)
[2021-11-27 21:08] LABS: BACTERIA, URINE LARGE AMOUNT
== END ==
LOC: M LAB REF 20:11
PROVIDERS: ATTEND Physician Assistant Medical
DX: N39.0 Urinary tract infection, site not specified (principal)

== ENCOUNTER → 2022-08-06 | Outpatient (REF) | payer MEDICARE, OTHER ==
[2022-08-06 18:48] LABS: APPEARANCE, URINE CLEAR (CLEAR); BACTERIA, URINE AUTO NEGATIVE (NEGATIVE); BILIRUBIN, URINE AUTO NEGATIVE (NEGATIVE); BLOOD, URINE BLOOD NEGATIVE (NEGATIVE); COLOR, URINE STRAW (YELLOW); GLUCOSE, URINE (UA) AUTO NEGATIVE (NEGATIVE); KETONE, URINE AUTO NEGATIVE (NEGATIVE); LEUKOCYTE ESTERASE, URINE AUTO NEGATIVE (NEGATIVE); MUCUS, URINE SMALL (NEGATIVE); NITRITE, URINE AUTO NEGATIVE (NEGATIVE); PROTEIN, URINE AUTO NEGATIVE (NEGATIVE); RBC, URINE AUTO 0 /HPF (0-3); SPECIFIC GRAVITY URINE AUTO 1.005 (1.002-1.035); SQUAMOUS EPITHELIAL CELL UR AU 0 /HPF (0-6); UROBILINOGEN, URINE AUTO 0.2 mg/dL (0.0-2.0); WBC, URINE AUTO 1 /HPF (0-3)
== END ==
LOC: M LAB REF 18:00
PROVIDERS: ATTEND Physician Assistant Medical
DX: N39.0 Urinary tract infection, site not specified (principal)

== ENCOUNTER → 2022-08-18 | Outpatient (CLI) | payer MEDICARE, OTHER | LOC: M RAD 06:07 | PROVIDERS: ATTEND Internal Medicine | DX: M79.632 Pain in left forearm (principal) ==

== ENCOUNTER → 2022-11-29 | Outpatient (REF) | payer MEDICARE, OTHER ==
[~2022-11-29] MED LIST changes: +MECL-209 PO; -MECL1TAB31 PO
== END ==
LOC: M LAB REF 12:18
PROVIDERS: ATTEND Internal Medicine
DX: R80.9 Proteinuria, unspecified (principal)

== ENCOUNTER → 2022-12-12 | Outpatient (REF) | payer MEDICARE, OTHER ==
[2022-12-12 19:11] LABS: C REACTIVE PROTEIN QUANTITATIV 0.4 MG/DL (<1.0)
[2022-12-12 19:12] LABS: IMMUNOGLOBULIN A 209.1 MG/DL (40-350); IMMUNOGLOBULIN M 141.4 MG/DL (50-300)
[2022-12-15 08:10] LABS: BETA 2 MICROGLOBULIN 2.6 mg/L (0.6-2.4); FREE LAMBDA LIGHT CHAINS SERUM 31.1 mg/L (5.7-26.3); KAPPA/LAMBDA RATIO SERUM 1.51 (0.26-1.65)
== END ==
LOC: M LAB REF 16:27
PROVIDERS: ATTEND Internal Medicine
DX: R80.9 Proteinuria, unspecified (principal); R77.9 Abnormality of plasma protein, unspecified

== ENCOUNTER → 2022-12-19 | Outpatient (REF) | payer MEDICARE, OTHER | LOC: M LAB REF 14:26 | PROVIDERS: ATTEND Internal Medicine | DX: D47.2 Monoclonal gammopathy (principal) ==

== ENCOUNTER → 2023-01-23 | Outpatient (REF) | payer MEDICARE, OTHER ==
[2023-01-25 15:09] LABS: ANTI DOUBLE STRAND-DNA AB <1 IU/mL (0-9); ANTINUCLEAR ANTIBODIES DIRECT Positive (Negative); RNP ANTIBODIES <0.2 AI (0.0-0.9); SJOGREN'S ANTI SS-A >8.0 AI (0.0-0.9); SJOGREN'S ANTI SS-B <0.2 AI (0.0-0.9); SMITH ANTIBODIES <0.2 AI (0.0-0.9)
== END ==
LOC: M LAB REF 16:21
PROVIDERS: ATTEND Internal Medicine
DX: D47.2 Monoclonal gammopathy (principal)

== ENCOUNTER → 2023-03-01 | Outpatient (REF) | payer MEDICARE, OTHER ==
[2023-03-02 15:08] LABS: ANTI DOUBLE STRAND-DNA AB <1 IU/mL (0-9); ANTINUCLEAR ANTIBODIES DIRECT Positive (Negative); RNP ANTIBODIES <0.2 AI (0.0-0.9); SJOGREN'S ANTI SS-A >8.0 AI (0.0-0.9); SJOGREN'S ANTI SS-B <0.2 AI (0.0-0.9); SMITH ANTIBODIES <0.2 AI (0.0-0.9)
== END ==
LOC: M LAB REF 12:20
PROVIDERS: ATTEND Internal Medicine
DX: R79.82 Elevated C-reactive protein (CRP) (principal)

== ENCOUNTER → 2023-05-29 | Outpatient (REF) | payer MEDICARE, OTHER | LOC: M SFHCWAGY 17:22 | PROVIDERS: ATTEND Obstetrics & Gynecology | DX: N84.1 Polyp of cervix uteri (principal) ==

== ENCOUNTER → 2023-08-08 | Outpatient (REF) | payer MEDICARE, OTHER | LOC: M LAB REF 11:25 | PROVIDERS: ATTEND Internal Medicine | DX: M79.622 Pain in left upper arm (principal) ==

== ENCOUNTER → 2023-12-10 | Outpatient (REF) | payer MEDICARE, OTHER | LOC: M LAB REF 12:51 | PROVIDERS: ATTEND Internal Medicine | DX: M17.12 Unilateral primary osteoarthritis, left knee (principal) ==

== ENCOUNTER → 2025-01-14 | Outpatient (REF) | payer MEDICARE, OTHER ==
[~2025-01-14] MED LIST changes: +LIDO1ADH93 TD; +LIDO1ADH93 TOP; -LIDO5DIS41 TD; -LIDO5DIS41 TOP
[2025-01-14 18:13] LABS: APPEARANCE, URINE CLOUDY (CLEAR); BACTERIA, URINE AUTO NEGATIVE (NEGATIVE); BILIRUBIN, URINE AUTO NEGATIVE (NEGATIVE); BLOOD, URINE BLOOD 3+ (NEGATIVE); GLUCOSE, URINE (UA) AUTO NEGATIVE (NEGATIVE); KETONE, URINE AUTO NEGATIVE (NEGATIVE); LEUKOCYTE ESTERASE, URINE AUTO 3+ (NEGATIVE); NITRITE, URINE AUTO NEGATIVE (NEGATIVE); PROTEIN, URINE AUTO 2+ mg/dL (NEGATIVE); RBC, URINE AUTO TNTC /HPF (0-3); SPECIFIC GRAVITY URINE AUTO 1.014 (1.002-1.035); SQUAMOUS EPITHELIAL CELL UR AU 2 /HPF (0-6); UROBILINOGEN, URINE AUTO 0.2 mg/dL (0.0-2.0); WBC, URINE AUTO TNTC /HPF (0-3)
== END ==
LOC: M LAB REF 17:49
PROVIDERS: ATTEND Physician Assistant
DX: N39.0 Urinary tract infection, site not specified (principal)